=== PATIENT | female | born 1995 | race Caucasian/White ===

== ENCOUNTER 2018-01-05 20:37 | Emergency (ER) | payer OTHER ==
--- NOTE | 2018-01-05 21:05 | ED ---
HPI Chest Pain - HPI Summary HPI Summary: This patient is a 22 year old F BIBA to [facility] with a chief complaint of chest tightness since 1 day ago. Pt notes that the pain has worsened since this afternoon. The patient rates the pain 1/10 in severity. Symptoms aggravated by nothing. Symptoms alleviated by nothing. Patient reports shortness of breath and dizziness. Patient denies cough or back pain. Pt notes she walks with a cane due to hx of one-sided weakness and joint problems. Hx of vascular Filiberto- Danlos syndrome. - History of Current Complaint Chief Complaint: EDChestPainROMI Time Seen by Provider: 01/05/18 20:44 Hx Obtained From: Patient Onset/Duration: Started Days Ago - 1 day, Atraumatic, Still Present, Worse Since - this morning Timing: Constant Initial Severity: Mild Current Severity: Mild Pain Intensity: 1 Pain Scale Used: 0-10 Numeric Character: Tightness Aggravating Factor(s): Nothing Alleviating Factor(s): Nothing Associated Signs and Symptoms: Positive: Chest Pain - chest discomfort, Dizziness, Shortness of Breath. Negative: Cough - Allergy/Home Medications Allergies/Adverse Reactions: Allergies Allergy/AdvReac Type Severity Reaction Status Date / Time No Known Allergies Allergy Verified 08/17/17 11:18 PMH/Surg Hx/FS Hx/Imm Hx Endocrine/Hematology History: Denies: Hx Diabetes Cardiovascular History: Denies: Hx Hypertension, Hx Pacemaker/ICD GI History: Comment Only: Other GI Disorders - NAUSEA/ABD PAIN History: Denies: Hx Renal Disease Musculoskeletal History: Reports: Hx Back Problems, Other Musculoskeletal History - HX OF FILIBERTO-DANLOS DEGENERATIVE DISC DISEASE Sensory History: Denies: Hx Hearing Aid Psychiatric History: Denies: Hx Panic Disorder - Surgical History Surgery Procedure, Year, and Place: EYE SURGERY FOR BLOCKED TEAR DUCT AGE 1. ORAL SURGERY AGE 12 Infectious Disease History: No Infectious Disease History: Denies: Traveled Outside the [place] in Last 30 Days - Family History Known Family History: Positive: Cardiac Disease - grandfather - Social History Occupation: Student Alcohol Use: Weekly Alcohol Amount: 1 DRINK Substance Use Type: Reports: None Smoking Status (MU): Never Smoked Tobacco Review of Systems Negative: Fever Positive: Chest Pain Positive: Shortness Of Breath Musculoskeletal: Other Neurological: Other - dizziness All Other Systems Reviewed And Are Negative: Yes Physical Exam - Summary Physical Exam Summary: GENERAL: Patient is a well-developed and nourished F who is lying comfortable in the stretcher. Patient is not in any acute respiratory distress. HEAD AND FACE: Normocephalic EYES: PERRLA, EOMI x 2. EARS: Hearing grossly intact. MOUTH: Oropharynx within normal limits. NECK: Supple, trachea is midline, no adenopathy, no JVD, no carotid bruit. CHEST: Symmetric, no tenderness at palpation LUNGS: Clear to auscultation bilaterally. No wheezing or crackles. CVS: Regular rate and rhythm, S1 and S2 present, no murmurs or gallops appreciated. ABDOMEN: Soft, non-tender. Bowel sounds are normal. No abdominal abnormal pulsations. EXTREMITIES: Full ROM in all major joints, no edema, no cyanosis or clubbing. NEURO: Alert and oriented x 3. No acute neurological deficits. Speech is normal and follows commands. SKIN: Dry and warm Triage Information Reviewed: Yes Vital Signs On Initial Exam: Initial Vitals Temp Pulse Resp BP Pulse Ox 98.6 F 78 18 112/69 100 01/05/18 20:49 01/05/18 20:49 01/05/18 20:49 01/05/18 20:49 01/05/18 20:49 Vital Signs Reviewed: Yes Diagnostics - Vital Signs Vital Signs Temp Pulse Resp BP Pulse Ox 01/05/18 20:49 98.6 F 78 18 112/69 100 - Laboratory Result Diagrams: 01/05/18 21:47 01/05/18 21:47 Lab Statement: Any lab studies that have been ordered have been reviewed, and results considered in the medical decision making process. - CT CTA Chest CT Interpretation Completed By: Radiologist Summary of CT Findings: No aortic dissection, aneurysm, or rupture. No additional findings to correlate with patient's symptomology. Dr. Finney has reviewed this report. - EKG 20:56 Cardiac Rate: NL - at 64 bpm EKG Rhythm: Sinus Rhythm Ectopy: PVCs Summary of EKG Findings: NSR at 64 bpm with PVCs. Chest Pain Course/Dx - Course Course Of Treatment: This patient is a 22 year old F BIBA to [facility] with a chief complaint of chest tightness, SOB, and dizziness since 1 day ago. Hx of vascular Filiberto-Danlos syndrome. An EKG reveals NSR at 64 bpm with PVCs. CTA Chest reveals, per radiologist, No aortic dissection, aneurysm, or rupture. No additional findings to correlate with patient's symptomology. ED physician has reviewed this radiology report. The patient will be discharged. I discussed results with patient and she reports feeling better. She is hemodynamically stable and safe for discharge. Strict return precautions given and she will otherwise follow up with her PCP. - Diagnoses Provider Diagnoses: Chest pain Discharge - Sign-Out/Discharge Documenting (check all that apply): Patient Departure - discharge home - Discharge Plan Condition: Stable Disposition: HOME Patient Education Materials: Chest Pain (ED) Referrals: Rosanna Reinoso [Primary Care Provider] - 1 Day Additional Instructions: Follow up with primary care physician in 1-3 days. Return to the emergency department with any new or worsening symptoms. - Billing Disposition and Condition Condition: STABLE Disposition: Home - Attestation Statements Document Initiated by Scribe: Yes Documenting Scribe: Lavonne Johnson Provider For Whom Scribe is Documenting (Include Credential): Lamont Finney MD Scribe Attestation: Lavonne Geiger, scribed for Lamont iFnney MD on 01/07/18 at 0117. Scribe Documentation Reviewed: Yes Provider Attestation: The documentation as recorded by the scribLavonne bennett accurately reflects the service I personally performed and the decisions made by Joel siddiqi MD
[2018-01-05] MEDS ORDERED: NS 0.9% 1000 ML* 1,000 ML IV ONE (21:25)
[2018-01-05 22:05] LABS: ABS Basophils 0 10^3/ul (0-0.2); ABS Eosinophils 0 10^3/ul (0-0.6); ABS Lymphocytes 2.5 10^3/ul (1.0-4.8); ABS Monocytes 0.5 10^3/ul (0-0.8); ABS Neutrophils 5.2 10^3/ul (1.5-7.7); ABS Nucleated RBC 0 10^3/ul; Eosinophil % 0.5 % (0-6); Hematocrit 38 % (35-47); Hemoglobin 12.7 g/dl (12.0-16.0); Lymphocyte % 30.5 % (25-47); Mean Corpuscular HGB Conc 33 g/dl (31-36); Mean Corpuscular Hemoglobin 27 pg (27-31); Mean Corpuscular Volume 80 fL (80-97); Mean Platelet Volume 7.8 fL (7.4-10.4); Nucleated Red Blood Cells % 0.1; Platelet Count 236 10^3/ul (150-450); Red Blood Count 4.76 10^6/ul (4.00-5.40); Red Cell Distribution Width 15 % (10.5-15); White Blood Count 8.3 10^3/ul (3.5-10.8)
[2018-01-05 22:13] LABS: INR 0.94 (0.77-1.02)
[2018-01-05 22:35] LABS: EGFR Non-African American 91.5 (>60)
[2018-01-05] MEDS ORDERED: Iohexol 350* (CONTRAST) 500 ML MDV IV ONE (23:25)
--- NOTE | 2018-01-06 00:05 | RAD ---
EXAM: CT Angiography Chest With Intravenous Contrast EXAM DATE/TIME: 01/05/2018 11:11 PM CLINICAL HISTORY: 22 years old, female; Pain; Chest pain; Additional info: HX of erlos-danlos with cp eval for dissection TECHNIQUE: Axial computed tomographic angiography images of the chest with intravenous contrast using CT angiography protocol. All CT scans at this facility use at least one of these dose optimization techniques: automated exposure control; mA and/or kV adjustment per patient size (includes targeted exams where dose is matched to clinical indication); or iterative reconstruction. Coronal and sagittal reformatted images were created and reviewed. MIP reconstructed images were created and reviewed. CONTRAST: 100 ml of OMNIPAQUE 350 administered intravenously. COMPARISON: No relevant prior studies available. FINDINGS: Pulmonary arteries: Pulmonary arteries are well opacified to the subsegmental branches. Normal caliber main pulmonary artery. No filling defects throughout the pulmonary artery tree. Aorta: No aortic atherosclerotic calcifications. No aortic dissection, aneurysm, or rupture. Lungs: No pulmonary nodules, masses, or consolidations. No bronchiectasis, peribronchial thickening, or luminal defects. Pleural space: Normal. No pneumothorax. No pleural effusion. Heart: Normal. No cardiomegaly. No pericardial effusion. Thyroid: No thyroid nodules. Bones/joints: No fractures. No suspicious bone lesions. Soft tissues: Normal. Lymph nodes: Normal. No enlarged lymph nodes. IMPRESSION: No aortic dissection, aneurysm, or rupture. No additional findings to correlate with patient's symptomatology. EXAM: CT Angiography Abdomen and Pelvis With Intravenous Contrast EXAM DATE/TIME: 01/05/2018 11:11 PM CLINICAL HISTORY: 22 years old, female; Pain; Chest pain; Additional info: HX of erlos-danlos with cp eval for dissection TECHNIQUE: Axial computed tomographic angiography images of the abdomen and pelvis with intravenous contrast material, including non-contrast images if performed. MIP and/or 3D reconstructed images were created and reviewed. All CT scans at this facility use at least one of these dose optimization techniques: automated exposure control; mA and/or kV adjustment per patient size (includes targeted exams where dose is matched to clinical indication); or iterative reconstruction. Coronal and sagittal reformatted images were created and reviewed. MIP reconstructed images were created and reviewed. CONTRAST: 100 ml of OMNIPAQUE 350 administered intravenously. COMPARISON: No relevant prior studies available. FINDINGS: Lungs: Normal. No consolidation. VASCULATURE: Aorta: No aortic atherosclerotic calcifications. No aortic dissection, aneurysm, or rupture. Celiac Trunk and Mesenteric Arteries: No occlusion or significant stenosis. Renal Arteries: No occlusion or significant stenosis. Iliac Arteries: No occlusion or significant stenosis. Common Femoral Arteries: No occlusion or significant stenosis. ABDOMEN: Liver: No mass. Gallbladder and bile ducts: Normal. No calcified stones. No ductal dilation. Pancreas: Normal. No mass. No ductal dilation. Spleen: Normal. No splenomegaly. Adrenals: Normal. No mass. Kidneys and ureters: No renal solid cortical lesions, calculi, or pelvocaliectasis.Normal caliber appendix without wall thickening or adjacent inflammation. Stomach and bowel: Incompletely distended grossly normal stomach. Normal caliber small bowel. No colonic masses or segmental wall thickening. Appendix: Normal caliber appendix without wall thickening or adjacent inflammation. PELVIS: Bladder: Thin-walled bladder with no focal nodularity, perivesicular stranding, or calcifications. Reproductive: Uterus and ovaries are normal. ABDOMEN and PELVIS: Intraperitoneal space: Small simple physiologic free fluid in the pelvic cul-de-sac. Bones/joints: No fractures. No suspicious bone lesions. Soft tissues: Normal. Lymph nodes: Normal. No enlarged lymph nodes. IMPRESSION: No aortic dissection, aneurysm, or rupture. No additional findings to correlate with patient's symptomatology. To contact [facility] with a general question: [facility] - [phone] For direct physician to physician contact: Physician Hotline - [phone] [facility] ([facility] Facility ID #[id number])
[2018-01-06 01:37] VITALS: BP 129/90
== END 2018-01-06 01:41 | disposition home or self-care (01) ==
LOC: ED 20:37
DX: R07.89 Other chest pain (principal); R06.02 Shortness of breath; R42 Dizziness and giddiness; Q79.6 Ehlers-Danlos syndromes; Z82.49 Family history of ischemic heart disease and other diseases of the circulatory system
CPT/HCPCS: 36415; 71275; 74174; 80053; 82553; 83605; 83735; 83880; 84484; 84702; 85025; 85610; 85730; 93005; 96360; 96361; 99283; Q9967